=== PATIENT | female | born 2000 | race Caucasian/White ===

== ENCOUNTER 2019-06-15 10:59 | Emergency (ER) | payer BC ==
[2019-06-15 11:49] LABS: Bilirubin Negative (Negative); Blood, Urine 1+ (Negative); Clarity Clear (Clear); Glucose, Urine (Dipstick) Normal (Negative); Leukocyte Negative Leu/uL (Negative); Nitrite Negative (Negative); Protein, Urine (Dipstick) Negative (Neg-Trace); RBC/HPF 21-50 HPF (0-3); Squamous Epithelial 0-3 HPF (0-3); Urobilinogen Normal mg/dL (Less than 2); WBC/HPF 0-3 HPF (0-3)
[2019-06-15 11:52] LABS: Bacteria/HPF 1+ HPF (None Seen); Pregnancy Test - Urine (BHCG) Negative (Negative); Pregu Control Background? CLEAR/WHITE (CLR/WHITE); Pregu Control Bar Appear? YES (CONTROL BAR); Specific Gravity 1.016 (1.002-1.036)
--- NOTE | 2019-06-15 12:48 | CT ---
CT ABDOMEN NONCONTRAST CT PELVIS NONCONTRAST: (Urolithiasis protocol) DATE: 06/15/2019 HISTORY: 19-year-old female with right flank pain COMPARISON: None available TECHNIQUE: IV injection of iodinated contrast media: None Oral contrast media: None FINDINGS: Other than for urolithiasis, the lack of IV and oral contrast limits the evaluation. There is a 0.3 x 0.2 x 0.3 cm calcification at the right posterior edge of the urinary bladder, proba lesvia at the UVJ. There is mild right hydronephrosis. Punctate 1 or 2 mm calculus at lower poles of bilateral kidneys, one on each side. Punctate 1 mm calc ulus at right renal upper pole calyx visible only on coronal and sagittal reconstructions. Within the limitations of a noncontrast scan, no gross abnormality identified involving urinary bladd er, abdominal aorta, adrenals, pancreas, liver, or spleen. No small bowel dilation. Normal appendix. No ascites or pneumoperitoneum. No colonic diverticulitis. Lung bases are clear. IMPRESSION: 1) mild right obstructive uropathy: Tiny 3 mm calculus at right ureterovesical junction causing very mild right hydronephrosis. 2) mild bilateral nephrolithiasis, a few punctate 1 and 2 mm bilateral renal calculi.
== END 2019-06-15 13:42 | disposition home or self-care (01) ==
LOC: ERS 10:59
DX: N13.2 Hydronephrosis with renal and ureteral calculous obstruction (principal)
CPT/HCPCS: 74176; 81003; 81015; 81025; 87086